=== PATIENT | male | born 1990 | race Caucasian/White ===

== ENCOUNTER 2019-05-03 19:35 | Emergency (ER) | payer OTHER ==
--- NOTE | 2019-05-03 20:17 | EDM.PDOC ---
ED HPI GENERAL MEDICAL PROBLEM - General Chief Complaint: Upper Extremity Injury/Pain Stated Complaint: CUT LEFT MIDDLE FINGER Time Seen by Provider: 05/03/19 20:06 Source of Information: Reports: Patient, RN Notes Reviewed History Limitations: Reports: No Limitations - History of Present Illness INITIAL COMMENTS - FREE TEXT/NARRATIVE: 28-year-old gentleman presents emergency department today with pain in his middle finger left hand going up to catch a football and jammed his finger now he cannot fully extend the digit Left Middle Finger-Middle Pain Score (Numeric/FACES): 2 - Related Data Allergies Allergy/AdvReac Type Severity Reaction Status Date / Time Sulfa (Sulfonamide AdvReac Rash Verified 05/03/19 19:53 Antibiotics) Home Meds: Home Meds NK [No Known Home Meds] 05/03/19 [History] Past Medical History Musculoskeletal History: Reports: Other (See Below) Other Musculoskeletal History: jaw surgery - Past Surgical History Head Surgeries/Procedures: Reports: None Musculoskeletal Surgical History: Reports: None Dermatological Surgical History: Reports: None Social & Family History - Tobacco Use Smoking Status *Q: Never Smoker Second Hand Smoke Exposure: No - Caffeine Use Caffeine Use: Reports: Energy Drinks - Recreational Drug Use Recreational Drug Use: No Review of Systems - Review of Systems Review Of Systems: See Below Musculoskeletal: Reports: Hand Pain ED EXAM, GENERAL - Physical Exam Exam: See Below Free Text/Narrative:: Examination left hand the radial pulses +2, full range of motion of all digits except for the distal aspect of digit #3 cannot extend consistent with mallet finger Exam Limited By: No Limitations General Appearance: Alert, WD/WN, No Apparent Distress Course - Vital Signs Last Recorded V/S: Last Vital Signs Temp 95.2 F L 05/03/19 19:54 Pulse 74 05/03/19 19:54 Resp 18 05/03/19 19:54 BP 122/74 05/03/19 19:54 Pulse Ox 97 05/03/19 19:54 Departure - Departure Time of Disposition: 21:12 Disposition: Home, Self-Care 01 Condition: Fair Clinical Impression: Mallet deformity of left middle finger - Discharge Information Referrals: PCP,None [Primary Care Provider] - Forms: ED Department Discharge Additional Instructions: Keep splint in place, [facility] health orthopedics department will call you tomorrow morning to set up an appointment time Dr. Alfaro - Assessment/Plan Plan: Assessment Acuity = acute Site and laterality = mallet finger digit #3 left hand Etiology = secondary to trauma Manifestations = none Location of injury = Home Lab values = x-ray reveals no fracture however unable to extend the last phalange Plan Called discussed case with Dr. 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
--- NOTE | 2019-05-03 20:54 | CRLCR ---
Indication: Injury Technique: Left 3rd digit 3 views. Comparison: None Findings: Bones: No evidence of fracture. Normal bony mineralization. Joint spaces: Persistent flexion at the distal interphalangeal joint of the 3rd digit although without dislocation. Soft tissues: Unremarkable. Impression: Persistent flexion of the distal interphalangeal joint of the 3rd digit without evidence of fracture or dislocation. Dictated by Ochoa Knight MD @ May 03 2019 8:50PM Signed by Dr. Ochoa Knight @ May 03 2019 8:52PM
== END 2019-05-03 21:23 | disposition home or self-care (01) ==
LOC: JP.ED 19:35
DX: M20.012 Mallet finger of left finger(s) (principal); Z88.2 Allergy status to sulfonamides; W21.01XA Struck by football, initial encounter
CPT/HCPCS: 73140-F2; 99283-25